=== PATIENT | male | born 1965 | race African-American/Black ===

== ENCOUNTER 2018-06-23 12:58 | Inpatient (IN) | payer OTHER ==
[2018-06-23 14:14] VITALS: BMI 30.9
--- NOTE | 2018-06-23 20:14 | HP ---
COWS - Scale Resting Pulse: 1= [place] 81-100 Sweatin= No chills or Flushing Restless Observation: 1= Difficult to Sit Still Pupil Size: 1= Pupils >than Normal Bone or Joint Aches: 1= Mild Discomfort Runny Nose/ Eye Tearin= Runny Nose/Eyes GI Upset > 30mins: 2= Nausea/Diarrhea Tremor Observation: 1= Tremor [place], Not Seen Yawning Observation: 2= >3x During Session Anxiety or Irritability: 2=Irritable/Anxious Goose Flesh Skin: 0=Smooth Skin COWS Score: 13 CIWA Score - CIWA Score Nausea/Vomitin Muscle Tremors: 2 Anxiety: 2 Agitation: 3 Paroxysmal Sweats: 2 Orientation: 0-Oriented Tacttile Disturbances: 1-Very Mild Itch/Numbness Auditory Disturbances: 0-None Visual Disturbances: 0-None Headache: 0-None Present CIWA-Ar Total Score: 13 Admission ROS BHS - HPI Chief Complaint: " I need to stop doing heroin" alcohol and opioid withdrawal sx Allergies/Adverse Reactions: Allergies Allergy/AdvReac Type Severity Reaction Status Date / Time No Known Allergies Allergy Verified 06/23/18 17:37 History of Present Illness: 53 yo male with hx nicotine, heroin (IV), and alcohol dependence is here seeking detox. Reports last detox March 2018 at [facility]. Denies any medical or psych Denies suicidal /homicidal Denies hx of overdose or blackouts Longest period of sobriety five years 1996 - 2001 Exam Limitations: No Limitations - Ebola screening Have you traveled outside of the country in the last 21 days: No Have you had contact with anyone from an Ebola affected area: No Have you been sick,other than usual withdrawal symptoms: No Do you have a fever: No - Review of Systems Constitutional: Changes in sleep EENT: reports: Tearing, Dental Problems Respiratory: reports: No Symptoms reported Cardiac: reports: No Symptoms Reported GI: reports: Nausea, Poor Fluid Intake : reports: No Symptoms Reported Musculoskeletal: reports: No Symptoms Reported Integumentary: reports: No Symptoms Reported Neuro: reports: No Symptoms reported Endocrine: reports: Increased Thirst Hematology: reports: No Symptoms Reported Psychiatric: reports: Orientated x3, Anxious Other Systems: Reviewed and Negative Patient History - Patient Medical History Hx Anemia: No Hx Asthma: No Hx Chronic Obstructive Pulmonary Disease (COPD): No Hx Cancer: No Hx Cardiac Disorders: No Hx Congestive Heart Failure: No Hx Hypertension: No Hx Hypercholesterolemia: No Hx Pacemaker: No HX Cerebrovascular Accident: No Hx Seizures: No Hx Dementia: No Hx Diabetes: No Hx Gastrointestinal Disorders: No Hx Liver Disease: No Hx Genitourinary Disorders: No Hx Sexually Transmitted Disorders: No Hx Renal Disease (ESRD): No Hx Thyroid Disease: No Hx Human Immunodeficiency Virus (HIV): No (Last tested two months ago NEG results ) Hx Hepatitis C: No Hx Depression: No Hx Suicide Attempt: No Hx Bipolar Disorder: No Hx Schizophrenia: No - Patient Surgical History Past Surgical History: No - PPD History Previous Implant?: No Documented Results: Negative w/o proof PPD to be Administered?: Yes - Smoking Cessation Smoking history: Current every day smoker Aproximately how many cigarettes per day: 10 Hx Chewing Tobacco Use: No Initiated information on smoking cessation: Yes 'Breaking Loose' booklet given: 06/23/18 - Substance & Tx. History Hx Alcohol Use: Yes Hx Substance Use: Yes Substance Use Type: Alcohol, Heroin Hx Substance Use Treatment: Yes (Reports last detox March 2018 at [facility]. ) - Substances Abused Heroin Route: Injection Frequency: Daily Amount used: 8 BAGS Age of first use: 33 Date of Last Use: 06/23/18 Alcohol Route: Oral Frequency: Daily Amount used: 6 PACKS Age of first use: 24 Date of Last Use: 06/23/18 Family Disease History - Family Disease History Family Disease History: CA: Mother Admission Physical Exam BHS - Vital Signs Vital Signs: Vital Signs - 24 hr 06/23/18 14:12 Temperature 98.2 F Pulse Rate 81 Respiratory 18 Rate Blood Pressure 122/76 - Physical General Appearance: Yes: Disheveled, Mild Distress, Sweating, Anxious HEENTM: Yes: EOMI, Hearing grossly Normal, Normal ENT Inspection, Normocephalic , Normal Voice, VISHAL, Pharynx Normal, Tm's normal, Other (watery eyes, cheilithis) Respiratory: Yes: Chest Non-Tender, Lungs Clear, Normal Breath Sounds, No Respiratory Distress, No Accessory Muscle Use Neck: Yes: Within Normal Limits Breast: Yes: Breast Exam Deferred Cardiology: Yes: Regular Rhythm, Regular Rate, Murmur Abdominal: Yes: Normal Bowel Sounds, Non Tender, Flat, Soft Genitourinary: Yes: Within Normal Limits Back: Yes: Normal Inspection Musculoskeletal: Yes: full range of Motion, Gait Steady, Pelvis Stable Extremities: Yes: Normal Capillary Refill, Normal Range of Motion, Coldness Neurological: Yes: shipping and receiving supervisor II-XII NML intact, Fully Oriented, Alert, Motor Strength 5/5, Depressed Affect Integumentary: Yes: Normal Color, Warm, Diaphoresis Lymphatic: Yes: Within Normal Limits - Diagnostic (1) Opioid dependence with withdrawal Current Visit: Yes Status: Acute (2) Alcohol dependence with withdrawal Current Visit: Yes Status: Acute Qualifiers: Complication of substance-induced condition: uncomplicated Qualified Code(s ): F10.230 - Alcohol dependence with withdrawal, uncomplicated (3) Nicotine dependence Current Visit: Yes Status: Acute Qualifiers: Nicotine product type: cigarettes (4) IVDU (intravenous drug user) Current Visit: Yes Status: Acute Cleared for Admission [facility] - Detox or Rehab [facility] Level of Care: Medically Managed Detox Regimen/Protocol: Methadone/Librium [facility] Breath Alcohol Content Breath Alcohol Content: 0.090 Urine Drug Screen - Results Drug Screen Negative: No Urine Drug Screen Results: HALIE-Cocaine, OPI-Opiates, FEN-Fentanyl
[2018-06-23] MEDS ORDERED: IBUPROFEN 400 MG TABLET (FP) PO PRN (20:21)
[2018-06-23] MEDS ORDERED: chlordiazePOXIDE HCL 25 MG CAPSULE PO PRN (20:21)
[2018-06-23] MEDS ORDERED: P-EPHED 60MG/TRIPROLIDI 2.5MG TABLET PO PRN (20:21)
[2018-06-23] MEDS ORDERED: MAGNESIUM CITRATE 300 ML BOTTLE PO PRN (20:21)
[2018-06-23] MEDS ORDERED: METHADONE HCL 10 MG TABLET (FOR DETOX USE ONLY) PO ONE ×2 (20:21→23:00)
[2018-06-23] MEDS ORDERED: MAG HYDROX/AL HYDROX/SIMETH 30 ML UNIT-DOSE CUP PO PRN (20:21)
[2018-06-23] MEDS ORDERED: ACETAMINOPHEN 325 MG TABLET (FP) PO PRN (20:21)
[2018-06-23] MEDS ORDERED: LOPERAMIDE HCL 2 MG CAPSULE PO PRN (20:21)
[2018-06-23] MEDS ORDERED: MENTHOL/PHENOL 1 EACH UD MM PRN (20:21)
[2018-06-23] MEDS ORDERED: guaiFENesin/D-METHORPHAN HB 10 ML UNIT-DOSE CUPS PO PRN (20:21)
[2018-06-23] MEDS ORDERED: MAGNESIUM HYDROX 2400MG/30ML ORAL SUSPENSION 30 ML CUP PO PRN (20:21)
[2018-06-23] MEDS ORDERED: NICOTINE POLACRILEX 2 MG GUM BUC PRN (20:21)
[2018-06-23] MEDS ORDERED: MELATONIN 5 MG TABLETS PO PRN (22:00)
[2018-06-23] MEDS: THIAMINE HCL 100 MG TABLET (FP) PO SCH (22:30)
[2018-06-23] MEDS: chlordiazePOXIDE HCL 25 MG CAPSULE PO SCH (22:31)
[2018-06-23 23:50] LABS: URINE APPEARANCE CLEAR; URINE BILIRUBIN NEGATIVE (<2.0 mg/dL); URINE COLOR STRAW; URINE GLUCOSE (UA) NEGATIVE (NEGATIVE); URINE KETONE NEGATIVE (NEGATIVE); URINE LEUK ESTERASE NEGATIVE (NEGATIVE); URINE NITRITE NEGATIVE (NEGATIVE); URINE PROTEIN NEGATIVE (NEGATIVE); URINE UROBILINOGEN NEGATIVE mg/dL (0.2-1.0)
[2018-06-24] MEDS: chlordiazePOXIDE HCL 25 MG CAPSULE PO SCH ×4 (05:17→22:30)
[2018-06-24] MEDS ORDERED: METHADONE HCL 10 MG TABLET (FOR DETOX USE ONLY) PO SCH (10:00)
[2018-06-24] MEDS: PRENATAL VITAMINS W/ FOLIC ACID TABLET (FP) PO SCH (10:16)
[2018-06-24] MEDS: NICOTINE 14 MG/24 HOURS TOPICAL PATCH TD SCH (10:16)
[2018-06-24 11:01] LABS: RBC 4.41 M/mm3 (4.00-5.60); WHITE BLOOD COUNT 4.2 K/mm3 (4.0-10.0)
[2018-06-24 11:03] LABS: HEMATOCRIT 39.9 % (35.4-49); MCH 29.6 pg (25.7-33.7); MCHC 32.7 g/dl (32.0-35.9); MEAN CELL VOLUME 90.6 fl (80-96); MEAN PLT VOLUME 9.1 fl (7.5-11.1); PLATELET COUNT 209 K/MM3 (134-434)
[2018-06-24 11:05] LABS: ALBUMIN 3.1 g/dl (3.4-5.0); ALK PHOS 86 U/L (45-117); ANION GAP 9 MMOL/L (8-16); BILIRUBIN,TOTAL 0.6 mg/dL (0.2-1); BLOOD UREA NITROGEN 14 mg/dL (7-18); CALCIUM 8.4 mg/dL (8.5-10.1); CHLORIDE 105 mmol/L (98-107); CO2 27 mmol/L (21-32); CREATININE 0.7 mg/dL (0.55-1.3); GLUCOSE,RANDOM 103 mg/dL (74-106); POTASSIUM 4.4 mmol/L (3.5-5.1); SGOT/AST 23 U/L (15-37); SGPT/ALT 23 U/L (13-61); SODIUM 141 mmol/L (136-145); TOT PROT 6.2 g/dl (6.4-8.2)
--- NOTE | 2018-06-24 11:15 | PN ---
BHS COWS - Scale Resting Pulse: 0= [place] 80 or Below Sweatin= Beads of Sweat on Face Restless Observation: 1= Difficult to Sit Still Pupil Size: 0= Normal to Room Light Bone or Joint Aches: 2= Severe Diffuse Aches Runny Nose/ Eye Tearin= None GI Upset > 30mins: 0= None Tremor Observation of Outstretched Hands: 0= None Yawning Observation: 0= None Anxiety or Irritability: 2=Irritable/Anxious Goose Flesh Skin: 0=Smooth Skin COWS Score: 8 BHS Progress Note (SOAP) Subjective: PATIENT C/O BODY ACHES, ANXIETY AND SWEATING. Objective: 06/24/18 11:13 Laboratory Tests 06/23/18 06/24/18 06/24/18 21:04 07:30 07:30 WBC 4.2 RBC 4.41 Hgb 13.0 Hct 39.9 MCV 90.6 MCH 29.6 MCHC 32.7 RDW 15.0 Plt Count 209 MPV 9.1 Sodium 141 Potassium 4.4 Chloride 105 Carbon Dioxide 27 Anion Gap 9 BUN 14 Creatinine 0.7 Creat Clearance w eGFR > 60 Random Glucose 103 Calcium 8.4 L Total Bilirubin 0.6 AST 23 ALT 23 Alkaline Phosphatase 86 Total Protein 6.2 L Albumin 3.1 L Urine Color Straw Urine Appearance Clear Urine pH 6.0 Ur Specific [place] 1.005 L Urine Protein Negative Urine Glucose (UA) Negative Urine Ketones Negative Urine Blood Negative Urine Nitrite Negative Urine Bilirubin Negative Urine Urobilinogen Negative Ur Leukocyte Esterase Negative PE: SKIN WARM, +BEADS OF SWEAT ON HER FACE CAR S1S2 RESP CTA BL EXT FULL ROM, NO EDEMA AMB AD LES ALERT AND ORIENTED X 3 Assessment: 06/24/18 11:15 WITHDRAWAL SX Plan: CONTINUE DETOX ORDERED ENCOURAGE ORAL FLUIDS CONTINUE TO MONITOR CLINICALLY
--- NOTE | 2018-06-24 11:17 | PN ---
S CIWA - CIWA Score Nausea/Vomitin-No Nausea/No Vomiting Muscle Tremors: None Anxiety: 2 Agitation: 1-Slight > Activity Paroxysmal Sweats: 4-Forehead w/Sweat Beads Orientation: 0-Oriented Tacttile Disturbances: 0-None Auditory Disturbances: 0-None Visual Disturbances: 0-None Headache: 0-None Present CIWA-Ar Total Score: 7
--- NOTE | 2018-06-24 11:36 | EKG ---
Test Reason : Blood Pressure : / mmHG Vent. Rate : 059 BPM Atrial Rate : 059 BPM P-R Int : 132 ms QRS Dur : 090 ms QT Int : 408 ms P-R-T Axes : 070 056 057 degrees QTc Int : 403 ms POOR DATA QUALITY, INTERPRETATION MAY BE ADVERSELY AFFECTED SINUS BRADYCARDIA OTHERWISE NORMAL ECG NO PREVIOUS ECGS AVAILABLE Confirmed by JAZZMINE URENA MD ([id number]) on 06/24/2018 11:36:25 AM Referred By: Confirmed By:JAZZMINE URENA MD
[2018-06-24] MEDS ORDERED: FLU VACCINE QUAD 60 MCG/0.5 ML (MDV 18-19) IM ONE (12:00)
[2018-06-24] MEDS ORDERED: PNEUMOCOCCAL 23 VACCINE 0.5 ML VIAL IM ONE (12:00)
[2018-06-24] MEDS ORDERED: PNEUMOC 13-VAL CONJ-DIP CRM/PF 0.5 ML DISP.SYRIN IM ONE (12:39)
--- NOTE | 2018-06-24 17:55 | PN ---
BHS Progress Note Note: pt is having nausea with vomiting of meds- requesting zofran
[2018-06-24] MEDS ORDERED: ONDANSETRON *ODT* 4 MG TABLET SL ONE (18:15)
[2018-06-24] MEDS: THIAMINE HCL 100 MG TABLET (FP) PO SCH (22:30)
[2018-06-25] MEDS: chlordiazePOXIDE HCL 25 MG CAPSULE PO SCH ×3 (06:22→17:22)
--- NOTE | 2018-06-25 10:20 | PN ---
[facility] Progress Note Note: Vital Signs Temperature 99.1 F 06/25/18 09:14 Pulse Rate 71 06/25/18 09:14 Respiratory Rate 18 06/25/18 09:14 Blood Pressure 151/85 06/25/18 09:14 O2 Sat by Pulse Oximetry (%) Laboratory Last Values WBC 4.2 K/mm3 (4.0-10.0) 06/24/18 07:30 RBC 4.41 M/mm3 (4.00-5.60) 06/24/18 07:30 Hgb 13.0 GM/dL (11.7-16.9) 06/24/18 07:30 Hct 39.9 % (35.4-49) 06/24/18 07:30 MCV 90.6 fl (80-96) 06/24/18 07:30 MCH 29.6 pg (25.7-33.7) 06/24/18 07:30 MCHC 32.7 g/dl (32.0-35.9) 06/24/18 07:30 RDW 15.0 % (11.9-15.9) 06/24/18 07:30 Plt Count 209 K/MM3 (134-434) 06/24/18 07:30 MPV 9.1 fl (7.5-11.1) 06/24/18 07:30 Sodium 141 mmol/L (136-145) 06/24/18 07:30 Potassium 4.4 mmol/L (3.5-5.1) 06/24/18 07:30 Chloride 105 mmol/L (98-107) 06/24/18 07:30 Carbon Dioxide 27 mmol/L (21-32) 06/24/18 07:30 Anion Gap 9 MMOL/L (8-16) 06/24/18 07:30 BUN 14 mg/dL (7-18) 06/24/18 07:30 Creatinine 0.7 mg/dL (0.55-1.3) 06/24/18 07:30 Creat Clearance w eGFR > 60 (>60) 06/24/18 07:30 Random Glucose 103 mg/dL (74-106) 06/24/18 07:30 Calcium 8.4 mg/dL (8.5-10.1) L 06/24/18 07:30 Total Bilirubin 0.6 mg/dL (0.2-1) 06/24/18 07:30 AST 23 U/L (15-37) 06/24/18 07:30 ALT 23 U/L (13-61) 06/24/18 07:30 Alkaline Phosphatase 86 U/L (45-117) 06/24/18 07:30 Total Protein 6.2 g/dl (6.4-8.2) L 06/24/18 07:30 Albumin 3.1 g/dl (3.4-5.0) L 06/24/18 07:30 Urine Color Straw 06/23/18 21:04 Urine Appearance Clear 06/23/18 21:04 Urine pH 6.0 (5.0-8.0) 06/23/18 21:04 Ur Specific [place] 1.005 (1.010-1.035) L 06/23/18 21:04 Urine Protein Negative (NEGATIVE) 06/23/18 21:04 Urine Glucose (UA) Negative (NEGATIVE) 06/23/18 21:04 Urine Ketones Negative (NEGATIVE) 06/23/18 21:04 Urine Blood Negative (NEGATIVE) 06/23/18 21:04 Urine Nitrite Negative (NEGATIVE) 06/23/18 21:04 Urine Bilirubin Negative (<2.0 mg/dL) 06/23/18 21:04 Urine Urobilinogen Negative mg/dL (0.2-1.0) 06/23/18 21:04 Ur Leukocyte Esterase Negative (NEGATIVE) 06/23/18 21:04 RPR Titer Nonreactive (NONREACTIVE) 06/24/18 07:30
[2018-06-25] MEDS: ONDANSETRON *ODT* 4 MG TABLET SL PRN (10:41)
[2018-06-25] MEDS: NICOTINE 14 MG/24 HOURS TOPICAL PATCH TD SCH (10:42)
[2018-06-25] MEDS: PRENATAL VITAMINS W/ FOLIC ACID TABLET (FP) PO SCH (10:42)
[2018-06-25] MEDS: METHADONE HCL 5 MG TABLET (FOR DETOX USE ONLY) PO SCH (11:47)
--- NOTE | 2018-06-25 12:33 | PN ---
[facility] CIWA - CIWA Score Nausea/Vomitin-Int. Nausea w/Dry Heave Muscle Tremors: 2 Anxiety: 2 Agitation: 3 Paroxysmal Sweats: 2 Orientation: 0-Oriented Tacttile Disturbances: 0-None Auditory Disturbances: 0-None Visual Disturbances: 0-None Headache: 0-None Present CIWA-Ar Total Score: 13 BHS COWS - Scale Resting Pulse: 0= [place] 80 or Below Sweatin= Chills/Flushing Restless Observation: 1= Difficult to Sit Still Pupil Size: 0= Normal to Room Light Bone or Joint Aches: 1= Mild Discomfort Runny Nose/ Eye Tearin= Runny Nose/Eyes GI Upset > 30mins: 2= Nausea/Diarrhea Tremor Observation of Outstretched Hands: 1= Tremor [place], Not Seen Yawning Observation: 2= >3x During Session Anxiety or Irritability: 2=Irritable/Anxious Goose Flesh Skin: 0=Smooth Skin COWS Score: 12 S Progress Note (SOAP) Subjective: fatigue, nausea and vomiting, interrupted sleep Objective: 06/25/18 12:28 Vital Signs Temperature 99.1 F 06/25/18 09:14 Pulse Rate 71 06/25/18 09:14 Respiratory Rate 18 06/25/18 09:14 Blood Pressure 151/85 06/25/18 09:14 O2 Sat by Pulse Oximetry (%) Laboratory Last Values WBC 4.2 K/mm3 (4.0-10.0) 06/24/18 07:30 RBC 4.41 M/mm3 (4.00-5.60) 06/24/18 07:30 Hgb 13.0 GM/dL (11.7-16.9) 06/24/18 07:30 Hct 39.9 % (35.4-49) 06/24/18 07:30 MCV 90.6 fl (80-96) 06/24/18 07:30 MCH 29.6 pg (25.7-33.7) 06/24/18 07:30 MCHC 32.7 g/dl (32.0-35.9) 06/24/18 07:30 RDW 15.0 % (11.9-15.9) 06/24/18 07:30 Plt Count 209 K/MM3 (134-434) 06/24/18 07:30 MPV 9.1 fl (7.5-11.1) 06/24/18 07:30 Sodium 141 mmol/L (136-145) 06/24/18 07:30 Potassium 4.4 mmol/L (3.5-5.1) 06/24/18 07:30 Chloride 105 mmol/L (98-107) 06/24/18 07:30 Carbon Dioxide 27 mmol/L (21-32) 06/24/18 07:30 Anion Gap 9 MMOL/L (8-16) 06/24/18 07:30 BUN 14 mg/dL (7-18) 06/24/18 07:30 Creatinine 0.7 mg/dL (0.55-1.3) 06/24/18 07:30 Creat Clearance w eGFR > 60 (>60) 06/24/18 07:30 Random Glucose 103 mg/dL (74-106) 06/24/18 07:30 Calcium 8.4 mg/dL (8.5-10.1) L 06/24/18 07:30 Total Bilirubin 0.6 mg/dL (0.2-1) 06/24/18 07:30 AST 23 U/L (15-37) 06/24/18 07:30 ALT 23 U/L (13-61) 06/24/18 07:30 Alkaline Phosphatase 86 U/L (45-117) 06/24/18 07:30 Total Protein 6.2 g/dl (6.4-8.2) L 06/24/18 07:30 Albumin 3.1 g/dl (3.4-5.0) L 06/24/18 07:30 Urine Color Straw 06/23/18 21:04 Urine Appearance Clear 06/23/18 21:04 Urine pH 6.0 (5.0-8.0) 06/23/18 21:04 Ur Specific [place] 1.005 (1.010-1.035) L 06/23/18 21:04 Urine Protein Negative (NEGATIVE) 06/23/18 21:04 Urine Glucose (UA) Negative (NEGATIVE) 06/23/18 21:04 Urine Ketones Negative (NEGATIVE) 06/23/18 21:04 Urine Blood Negative (NEGATIVE) 06/23/18 21: Urine Nitrite Negative (NEGATIVE) 06/23/18 21:04 Urine Bilirubin Negative (<2.0 mg/dL) 06/23/18 21:04 Urine Urobilinogen Negative mg/dL (0.2-1.0) 06/23/18 21:04 Ur Leukocyte Esterase Negative (NEGATIVE) 06/23/18 21:04 RPR Titer Nonreactive (NONREACTIVE) 06/24/18 07:30 Aox3 no distress no adventitious breath sounds BS non-tender, non-distended full ROM ambulatory Assessment: 06/25/18 12:31 withdrawal sx Plan: increase fluids withdrawal sx continue to monitor
[2018-06-25] MEDS: THIAMINE HCL 100 MG TABLET (FP) PO SCH (22:42)
[2018-06-25] MEDS: chlordiazePOXIDE 5 MG CAPSULE PO SCH (22:43)
[2018-06-26] MEDS ORDERED: TRIMETHOBENZAMIDE HCL 200MG/2ML INJ IM PRN (02:39)
[2018-06-26] MEDS ORDERED: TRIMETHOBENZAMIDE HCL 200MG/2ML INJ IM ONE (02:47)
[2018-06-26] MEDS: chlordiazePOXIDE 5 MG CAPSULE PO SCH ×3 (06:56→17:48)
[2018-06-26] MEDS: ONDANSETRON *ODT* 4 MG TABLET SL PRN (09:24)
[2018-06-26] MEDS: PRENATAL VITAMINS W/ FOLIC ACID TABLET (FP) PO SCH (12:03)
[2018-06-26] MEDS: METHADONE HCL 5 MG TABLET (FOR DETOX USE ONLY) PO SCH (12:04)
[2018-06-26] MEDS: NICOTINE 14 MG/24 HOURS TOPICAL PATCH TD SCH (12:04)
--- NOTE | 2018-06-26 15:33 | PN ---
BHS Progress Note (SOAP) Subjective: Tremor, chills, sweating, interrupted sleep, vomiting Objective: 06/26/18 15:32 Last Vital Signs Temp Pulse Resp BP Pulse Ox 97.6 F 97 H 20 114/72 06/26/18 13:56 06/26/18 13:56 06/26/18 13:56 06/26/18 13:56 Laboratory Tests 06/23/18 06/24/18 06/24/18 21:04 07:30 07:30 WBC 4.2 RBC 4.41 Hgb 13.0 Hct 39.9 MCV 90.6 MCH 29.6 MCHC 32.7 RDW 15.0 Plt Count 209 MPV 9.1 Sodium 141 Potassium 4.4 Chloride 105 Carbon Dioxide 27 Anion Gap 9 BUN 14 Creatinine 0.7 Creat Clearance w eGFR > 60 Random Glucose 103 Calcium 8.4 L Total Bilirubin 0.6 AST 23 ALT 23 Alkaline Phosphatase 86 Total Protein 6.2 L Albumin 3.1 L Urine Color Straw Urine Appearance Clear Urine pH 6.0 Ur Specific [place] 1.005 L Urine Protein Negative Urine Glucose (UA) Negative Urine Ketones Negative Urine Blood Negative Urine Nitrite Negative Urine Bilirubin Negative Urine Urobilinogen Negative Ur Leukocyte Esterase Negative RPR Titer 06/24/18 07:30 WBC RBC Hgb Hct MCV MCH MCHC RDW Plt Count MPV Sodium Potassium Chloride Carbon Dioxide Anion Gap BUN Creatinine Creat Clearance w eGFR Random Glucose Calcium Total Bilirubin AST ALT Alkaline Phosphatase Total Protein Albumin Urine Color Urine Appearance Urine pH Ur Specific [place] Urine Protein Urine Glucose (UA) Urine Ketones Urine Blood Urine Nitrite Urine Bilirubin Urine Urobilinogen Ur Leukocyte Esterase RPR Titer Nonreactive Labs reviewed Assessment: 06/26/18 15:32 Withdrawal symptoms Plan: Continue detox Encouraged PO water intake
[2018-06-26] MEDS: chlordiazePOXIDE HCL 10 MG CAPSULE PO SCH (22:29)
[2018-06-26] MEDS: THIAMINE HCL 100 MG TABLET (FP) PO SCH (22:29)
[2018-06-27] MEDS: chlordiazePOXIDE HCL 10 MG CAPSULE PO SCH (07:17)
[2018-06-27] MEDS: ONDANSETRON *ODT* 4 MG TABLET SL PRN (09:11)
[2018-06-27 09:18] VITALS: BP 85/61; PULSE 99
[2018-06-27 09:38] VITALS: TEMP 96.6
[2018-06-27] MEDS ORDERED: METHADONE HCL 10 MG TABLET (FOR DETOX USE ONLY) PO SCH (10:00)
--- NOTE | 2018-06-27 12:28 | PN ---
[facility] Progress Note Note: Pt came up to provider requesting to leave. He stated he has to go to work and can't be late. Explained to pt that his detox will be completed tomorrow and he could have requested an early d/c so that his regimen would have been adjusted. He said he is aware, didnt think about it but has to leave now. He has steady gait, A & O x 3 and in no acute distress. Pt agitating to leave, not receptive to education on need to complete detox. Risks of complicated withdrawals, even explained to pt, he verbalized understanding. Pt will leave AMA.
--- NOTE | 2018-06-27 12:29 | DS ---
[facility] Detox Discharge Summary Admission Date: 06/23/18 Discharge Date: 06/27/18 - History Additional Comments: Pt will leave unit AMA, pls see progress note Not on home meds - Physical Exam Results Vital Signs: Vital Signs Temperature 96.6 F L 06/27/18 09:18 Pulse Rate 99 H 06/27/18 09:18 Respiratory Rate 18 06/27/18 09:18 Blood Pressure 85/61 L 06/27/18 09:18 O2 Sat by Pulse Oximetry (%) - Medication Discharge Medications: Ambulatory Orders NK [No Known Home Medication] 06/23/18 - AMA Did Patient Leave Against Medical Advice: Yes
[2018-06-28] MEDS ORDERED: METHADONE HCL 5 MG TABLET (FOR DETOX USE ONLY) PO SCH (06:00)
== END 2018-06-27 10:31 | disposition left against medical advice (07) | DRG 770 ==
LOC: YASAS 12:58 → Y3N 17:38
PROC: HZ2ZZZZ Detoxification Services for Substance Abuse Treatment (ICD-10-PCS; principal; 2018-06-23)
DX: F11.23 Opioid dependence with withdrawal (principal); F10.230 Alcohol dependence with withdrawal, uncomplicated; F17.210 Nicotine dependence, cigarettes, uncomplicated; R01.1 Cardiac murmur, unspecified
CPT/HCPCS: 36415; 80053; 81003; 85027; 86593; 93005; 93010; Q0162